=== PATIENT | female | born 1960 | race Caucasian/White ===

== ENCOUNTER 2020-07-05 14:55 | Emergency (ER) | payer OTHER ==
[2020-07-05 17:44] LABS: HEMOGLOBIN 14.7 gm/dl (12.3-15.3); RED BLOOD COUNT 4.39 M/UL (4.00-5.10); WHITE BLOOD COUNT 8.9 K/UL (4.5-11.0)
[2020-07-05 17:58] LABS: BUN/CREATININE RATIO 17 (0-10)
[2020-07-05] MEDS ORDERED: MOBIC15 MG PO (19:42)
[2020-07-05] MEDS ORDERED: CYCLOBENZAPRINE5 MG PO (19:42)
== END 2020-07-05 20:22 | disposition home or self-care (01) ==
LOC: ER1 14:55
PROVIDERS: Physician Assistant
DX: R51.9 Headache, unspecified (principal); E11.9 Type 2 diabetes mellitus without complications; I10 Essential (primary) hypertension; E78.00 Pure hypercholesterolemia, unspecified; Z90.49 Acquired absence of other specified parts of digestive tract; Z79.82 Long term (current) use of aspirin; F17.210 Nicotine dependence, cigarettes, uncomplicated
CPT/HCPCS: 70450; 70496; 80048; 85025; 99284; Q9963

== ENCOUNTER → 2020-11-08 | Outpatient (CLI) | payer OTHER ==
[~2020-11-08] MED LIST: CYCLOBENZAPRINE5 MG PO; MOBIC15 MG PO
== END ==
LOC: KOH-I 09:04 → NM 09:04
DX: C50.412 Malignant neoplasm of upper-outer quadrant of left female breast (principal); M85.88 Other specified disorders of bone density and structure, other site; Z80.3 Family history of malignant neoplasm of breast; Z84.89 Family history of other specified conditions; Z78.0 Asymptomatic menopausal state
CPT/HCPCS: 77080; 78306; A9503

== ENCOUNTER → 2021-06-05 | Outpatient (CLI) | payer OTHER | LOC: EXRD 06-02 08:00 | DX: I71.4 Abdominal aortic aneurysm, without rupture (principal) | CPT/HCPCS: 93979 ==

== ENCOUNTER → 2021-09-11 | Outpatient (CLI) | payer OTHER ==
[2021-09-11 07:40] LABS: HEMOGLOBIN 14.6 gm/dl (12.3-15.3); RED BLOOD COUNT 4.19 M/UL (4.00-5.10)
[2021-09-11 08:20] LABS: BUN/CREATININE RATIO 17 (0-10)
[2021-09-12 11:13] LABS: CREATININE, URINE 66.4 mg/dL (Not Estab.); MICROALB/CREAT RATIO <5 (0-29)
== END ==
LOC: LAB 06:58
PROVIDERS: Physician Assistant
DX: E11.9 Type 2 diabetes mellitus without complications (principal); E78.5 Hyperlipidemia, unspecified; E55.9 Vitamin D deficiency, unspecified; R53.83 Other fatigue
CPT/HCPCS: 36415; 80053; 80061; 82043; 82570; 82607; 83036; 84439; 84443; 85025

== ENCOUNTER → 2021-12-11 | Outpatient (CLI) | payer OTHER | LOC: LAB 13:38 | DX: R31.9 Hematuria, unspecified (principal) | CPT/HCPCS: 81001 ==